=== PATIENT | female | born 1955 | race Two or more races ===

== ENCOUNTER 2024-08-22 17:51 | Emergency (ER) | payer OTHER ==
[~2024-08-22] VITALS: Ht 170.2 cm; Wt 73.0 kg
--- NOTE | 2024-08-22 18:24 | ED.PDOC ---
HPI (NEURO) HPI Comments 69-year-old female came to ER via EMS for headaches. Patient states she was having dinner at a restaurant when she developed sudden onset sharp occipital headaches, radiating towards her frontal area, 10/10 intensity, 3 episodes at 10 second intervals. Patient also complaining of substernal chest discomfort, denies any nausea or vomiting, denies any unilateral weakness or numbness. She does have history of CVA. Chief Complaint: Headache Time Seen by MD: 18:23 Reviewed Notes: Barometers Calibrator Notes Information Source: Patient Mode of Arrival: EMS Severity: Moderate Dizziness/Weakness Severity: Unable to do activities Headache Severity: Moderate Timing: Minutes Duration: Intermittent, Minutes Prehospital treatment: None Headache Quality: Sharp Headache Location: Frontal, Occipital Onset: With light exertion Circumstances: Spontaneous Associated Signs and Symptoms: Headache, Chest Pain Past Medical History PAST MEDICAL HISTORY: CVA, Depression, GERD, High Lipids, HTN Past Medical History (Other): Short term memory loss Surgical History: Denies all surgeries 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 Family History Family History: Reviewed,noncontributory to illness Social History Smoker: Non-Smoker Alcohol: Denies ETOH Use Drugs: Denies Drug Use Lives In: Home Constitutional: denies: chills, diaphoresis, fatigue, fever, malaise, sweats, weakness, others EENTM: denies: blurred vision, double vision, ear bleeding, ear discharge, ear drainage, ear pain, ear ringing, eye pain, eye redness, hearing loss, mouth pain, mouth swelling, nasal discharge, nose bleeding, nose congestion, nose pain, photophobia, tearing, throat pain, throat swelling, voice changes, others Respiratory: denies: cough, hemoptysis, orthopnea, SOB at rest, shortness of breath, SOB with excertion, stridor, wheezing, others Cardiovascular: reports: chest pain; denies: dizzy spells, diaphoresis, Dyspnea on exertion, edema, irregular heart beat, left arm pain, lightheadedness, palpitations, PND, syncope, others Gastrointestinal: denies: abdomen distended, abdominal pain, blood streaked bowels, constipated, diarrhea, dysphagia, difficulty swallowing, hematemesis, melena, nausea, poor appetite, poor fluid intake, rectal bleeding, rectal pain, vomiting, others Genitourinary: denies: abnormal vagina bleeding, burning, dyspareunia, dysuria, flank pain, frequency, hematuria, incontinence, pain, , vagina discharge, urgency, others Neurological: reports: headache; denies: dizziness, fainting, left sided numbness, left sided weakness, numbness, paresthesia, pre-existing deficit, right sided numbness, right sided weakness, seizure, speech problems, tingling, tremors, weakness, others Musculoskeletal: denies: back pain, gout, joint pain, joint swelling, muscle pain, muscle stiffness, neck pain, others Integumetry: denies: bruises, change in color, change in hair/nails, dryness, laceration, lesions, lumps, rash, wounds, others Allergic/Immunocompromised: denies: Difficulty Healing, Frequent Infections, Hives, Itching, others Hematologic/Lymphatic: denies: anemia, blood clots, easy bleeding, easy bruising, swollen glands, others Endocrine: denies: excessive hunger, excessive sweating, excessive thirst, excessive urination, flushing, intolerance to cold, intolerance to heat, unexplained weight gain, unexplained weight loss, others Psychiatric: denies: anxiety, bipolar disorder, depression, hopeless, panic disorder, schizophrenia, sleepless, suicidal, others Physical Exam General Appearance: No Apparent Distress, Normal HEENT: Normal ENT Inspection, Pharynx Normal, TMs Normal Neck: Full Range of Motion, Non-Tender, Normal, Normal Inspection Respiratory: Chest Non-Tender, Lungs Clear, No Accessory Muscle Use, No Respiratory Distress, Normal Breath Sounds Cardiovascular: No Edema, No JVD, No Murmur, No Gallop, Normal Peripheral Pulses, Regular Rate/Rhythm Breast Exam: Deferred Gastrointestinal: No Organomegaly, Non Tender, No Pulsatile Mass, Normal Bowel Sounds, Soft Genitalia: Deferred Pelvic: Deferred Rectal: Deferred Extremities: No calf tenderness, Normal capillary refill, Normal inspection, Normal range of motion, Non-tender, No pedal edema Musculoskeletal : Apperance: Normal Neurologic: Alert, confectionery cooker II-XII nml as Tested, No Motor Deficits, Normal Affect, Normal Mood, No Sensory Deficits Cerebellar Function: Normal Reflexes: Normal Skin: Dry, Normal Color, Warm Lymphatic: No Adenopathy EKG EKG : Pulse Rate (adult): 58 Cardiac Rhythm: NSR Was a procedure done? Was a procedure done?: No Differential Diagnosis (SZ) Headache: Migraine, CVA, Intracerebral Hemorrhage, Subarachnoid Hemorrhage, Subdural Hemorrhage, Sinusitis X-Ray, Labs, Meds, VS Vital Signs Date Time Temp Pulse Resp B/P (MAP) Pulse Ox O2 Delivery O2 Flow Rate FiO2 08/22/24 18:24 58 08/22/24 18:20 58 08/22/24 18:01 98.4 60 17 129/62 (84) 97 Lab Test 08/22/24 19:42 Range/Units White Blood Count 7.0 4.4-10.8 10^3/uL Red Blood Count 4.37 4.0-5.20 10^6/uL Hemoglobin 14.2 12.2-16.2 g/dL Hematocrit 41.8 36.0-46.0 % Mean Corpuscular Volume 95.6 80.0-100.0 fL Mean Corpuscular Hemoglobin 32.4 H 28.0-32.0 pg Mean Corpuscular Hemoglobin Concent 33.9 32.0-36.0 g/dL Red Cell Distribution Width 13.9 11.8-14.3 % Platelet Count 286 140-450 10^3/uL Mean Platelet Volume 8.8 6.9-10.8 fL Neutrophils (%) (Auto) 51.4 37.0-80.0 % Lymphocytes (%) (Auto) 34.2 10.0-50.0 % Monocytes (%) (Auto) 10.3 0.0-12.0 % Eosinophils (%) (Auto) 3.0 0.0-7.0 % Basophils (%) (Auto) 1.1 0.0-2.0 % Neutrophils # (Auto) 3.6 1.6-8.6 10 ^3/uL Lymphocytes # (Auto) 2.4 0.4-5.4 10 ^3/uL Monocytes # (Auto) 0.7 0-1.3 10 ^3/uL Eosinophils # (Auto) 0.2 0-0.8 10 ^3/uL Basophils # (Auto) 0.1 0-0.2 10 ^3/uL Nucleated Red Blood Cells 0.2 % Prothrombin Time 10.1 9.3-11.8 sec Prothrombin Time INR 0.95 0.9-1.15 Activated Partial Thromboplast Time 25.1 24.5-34.5 SEC Sodium Level 139 136-145 mmol/L Potassium Level 4.2 3.5-5.1 mmol/L Chloride Level 105 98-107 mmol/L Carbon Dioxide Level 28 20-31 mmol/L Anion Gap 6 5-15 Blood Urea Nitrogen 14 9-23 mg/dL Creatinine 0.97 0.550-1.02 mg/dL Glomerular Filtration Rate Calc 64 >90 mL/min BUN/Creatinine Ratio 14.4 10.0-20.0 Serum Glucose 111 H 74-106 mg/dL Calcium Level 10.4 8.7-10.4 mg/dL Magnesium Level 2.0 1.6-2.6 mg/dL Total Bilirubin 0.3 0.2-1.0 mg/dL Aspartate Amino Transferase (AST) 13 13-40 U/L Alanine Aminotransferase (ALT) 15 7-40 U/L Alkaline Phosphatase 115 46-116 U/L Troponin I High Sensitivity 4 </=34 ng/L B-Type Natriuretic Peptide 44.91 0-100 pg/mL Total Protein 6.2 5.7-8.2 g/dL Albumin 4.6 3.2-4.8 g/dL CT BRAIN WITHOUT CONTRAST HISTORY: headache TECHNIQUE: Axial scans were obtained from the skull base through the vertex without contrast. Sagittal and coronal reformats were generated. One or more of the following radiation dose reduction techniques were used for this examination: automated exposure control, adjustment of the mA and/or kV according to patient size, use of iterative reconstruction technique. COMPARISON: None FINDINGS: Chronic appearing tiny bilateral basal ganglia lacunar infarcts versus dilated perivascular spaces. Bilateral basal ganglia calcifications also noted. No definite acute intracranial hemorrhage or evidence of large vessel territorial infarction is identified at this time. Patchy periventricular and subcortical white matter hypoattenuation is nonspecific and may be sequelae of chronic microangiopathy. No midline shift. The basilar cisterns are patent. Mucosal thickening in the left maxillary sinus. The mastoid air cells are clear. No grossly displaced calvarial fracture is identified. IMPRESSION: No acute intracranial hemorrhage or definite evidence of large vessel territoria l infarction identified at this time. If there is persistent clinical concern, MRI may be obtained to further evaluate. Other findings as above. EXAMINATION: AP portable chest radiograph CLINICAL HISTORY: chest pain COMPARISON: None FINDINGS: No dominant consolidation. The costophrenic angles appear clear. No sizable pleural effusion or pneumothorax identified. The cardiomediastinal silhouette appears within normal limits given technique. IMPRESSION: No acute cardiopulmonary findings as visualized. There are no neurological deficits on physical exam. CBC and CMP were normal. Troponin is four. BNP is 45. EKG shows no signs of ischemia. Chest x-ray is normal. Head CT without contrast is normal. I spoke with Dr. ABBOTT of [facility] and he agreed to arrange for outpatient follow up. Authorization #[id number] Time of 1ST Reevaluation: 18:19 Reevaluation 1ST: Unchanged Patient Education/Counseling: Diagnosis, Treatment Family Education/Counseling: No Family Present Departure 1 Departure Time of Disposition: 21:23 Impression: Primary Impression: Headache Qualified Codes: R51.9 - Headache, unspecified Additional Impression: Chest pain, non-cardiac Disposition: HOME / SELF CARE / HOMELESS Condition: Stable Additional Instructions: Reassessed patient, vital signs stable. Denies any new symptoms. Patient is able to tolerate PO and ambulate/be mobile at their baseline without concern. Risks and benefits of all medications given or prescribed, if any, discussed. All lab work, imaging and diagnostic studies were reviewed by me. The patient was counseled extensively on my clinical impression, diagnosis, expected course of the disease, and plan, including their follow-up care. Will discharge patient. Patient instructed to follow up with Primary Care Physician within 24-48 hours. Strict return precautions given for further exacerbation of symptoms or for new symptoms. The patient was given the opportunity to ask questions and all questions were answered by myself and the nursing/tech staff. Patient is in agreement with the care plan. The patient verbally expressed understanding of the discharge instructions, including the reasons to return to the Emergency Department. Discharged With: Self Critical Care Note Critical Care Time?: Yes (35 min-critical care time only) Stability Stability form required: No Heart Score Heart Score: Heart Score Response (Comments) Value History N/A 0 EKG N/A 0 Age N/A 0 Risk Factors N/A 0 Troponin N/A 0 Total 0 I personally scribed for MEERA MORTENSEN MD ([email or web address]) on 08/22/24 at 18:24. Electronically submitted by Jayden Mccoy ([email or web address]). I personally scribed for MEERA MORTENSEN MD ([email or web address]) on 08/22/24 at 21:09. Electronically submitted by Jayden Mccoy ([email or web address]). MEERA MORTENSEN MD Aug 22, 2024 18:24
--- NOTE | 2024-08-22 18:25 | ECG ---
[facility] Test Date: 2024-08-22 Test Time: 18:20:21 Pat Name: ТАТЬЯНА NUNEZ Department: ER Room: Gender: F Geologic Technician: KENYA : 1955 Requested By: MEERA MORTENSEN Order Number: [id number] Reading MD: Measurements Intervals [place] Rate: 58 P: 43 IL: 194 QRS: 3 QRSD: 101 T: 61 QT: 429 QTc: 422 Interpretive Statements Sinus rhythm Probable anteroseptal infarct, old Baseline wander in lead(s) V5 Please click the below link to view image of tracing.
--- NOTE | 2024-08-22 19:44 | DVH ---
CT BRAIN WITHOUT CONTRAST HISTORY: headache TECHNIQUE: Axial scans were obtained from the skull base through the vertex without contrast. Sagitta l and coronal reformats were generated. One or more of the following radiation dose reduction techniq ues were used for this examination: automated exposure control, adjustment of the mA and/or kV accord ing to patient size, use of iterative reconstruction technique. COMPARISON: None FINDINGS: Chronic appearing tiny bilateral basal ganglia lacunar infarcts versus dilated perivascular spaces. B ilateral basal ganglia calcifications also noted. No definite acute intracranial hemorrhage or eviden ce of large vessel territorial infarction is identified at this time. Patchy periventricular and subc ortical white matter hypoattenuation is nonspecific and may be sequelae of chronic microangiopathy. No midline shift. The basilar cisterns are patent. Mucosal thickening in the left maxillary sinus. The mastoid air cells are clear. No grossly displace d calvarial fracture is identified. IMPRESSION: No acute intracranial hemorrhage or definite evidence of large vessel territorial infarction identifi ed at this time. If there is persistent clinical concern, MRI may be obtained to further evaluate. Other findings as above.
--- NOTE | 2024-08-22 19:55 | DVH ---
EXAMINATION: AP portable chest radiograph CLINICAL HISTORY: chest pain COMPARISON: None FINDINGS: No dominant consolidation. The costophrenic angles appear clear. No sizable pleural effusion or pneu mothorax identified. The cardiomediastinal silhouette appears within normal limits given technique. IMPRESSION: No acute cardiopulmonary findings as visualized.
[2024-08-22 19:59] LABS: Basophils # (auto) 0.1 10 ^3/uL (0-0.2); Basophils % (auto) 1.1 % (0.0-2.0); Eosinophils # (auto) 0.2 10 ^3/uL (0-0.8); Hematocrit 41.8 % (36.0-46.0); Hemoglobin 14.2 g/dL (12.2-16.2); Lymphocytes # (auto) 2.4 10 ^3/uL (0.4-5.4); Lymphocytes % (auto) 34.2 % (10.0-50.0); Mean Corpuscular Hemoglobin 32.4 pg (28.0-32.0); Mean Corpuscular Hgb Conc. 33.9 g/dL (32.0-36.0); Mean Corpuscular Volume 95.6 fL (80.0-100.0); Monocytes # (auto) 0.7 10 ^3/uL (0-1.3); Monocytes % (auto) 10.3 % (0.0-12.0); Neutrophils # (auto) 3.6 10 ^3/uL (1.6-8.6); Neutrophils % (auto) 51.4 % (37.0-80.0); Nucleated Red Blood Cells % 0.2 %; Platelet Count (auto) 286 10^3/uL (140-450); Red Blood Cells 4.37 10^6/uL (4.0-5.20); Red Cell Distribution Width 13.9 % (11.8-14.3)
[2024-08-22 20:16] LABS: Alanine Aminotransferase 15 U/L (7-40); Albumin 4.6 g/dL (3.2-4.8); Alkaline Phosphatase 115 U/L (46-116); Anion Gap 6 (5-15); Aspartate Aminotransferase 13 U/L (13-40); BUN/Creatinine Ratio 14.4 (10.0-20.0); Blood Urea Nitrogen 14 mg/dL (9-23); Calcium 10.4 mg/dL (8.7-10.4); Carbon Dioxide 28 mmol/L (20-31); Chloride 105 mmol/L (98-107); Potassium 4.2 mmol/L (3.5-5.1); Sodium 139 mmol/L (136-145)
[2024-08-22 20:17] LABS: Bilirubin, Total 0.3 mg/dL (0.2-1.0); Total Protein 6.2 g/dL (5.7-8.2)
[2024-08-22 20:23] LABS: INR 0.95 (0.9-1.15); Partial Thromboplastin Time 25.1 SEC (24.5-34.5); Prothrombin Time 10.1 sec (9.3-11.8)
[2024-08-22 20:35] LABS: Glucose 111 mg/dL (74-106)
[2024-08-22 23:35] VITALS: BP 131/61; PULSE 60; RESP 16; TEMP 97.4; O2SAT 96
== END 2024-08-22 23:37 | disposition home or self-care (01) ==
LOC: EDBD 17:51 → ER 17:58
DX: R51.9 Headache, unspecified (principal); R07.89 Other chest pain; I10 Essential (primary) hypertension; K21.9 Gastro-esophageal reflux disease without esophagitis; E78.5 Hyperlipidemia, unspecified; Z86.73 Personal history of transient ischemic attack (TIA), and cerebral infarction without residual deficits
CPT/HCPCS: 36415; 70450; 71045; 80053; 83735; 83880; 84484; 85025; 85610; 85730; 93005